=== PATIENT | female | born 1960 | race Asian ===

== ENCOUNTER 2023-02-16 08:15 | Day surgery (SDC) | payer MEDICAID ==
[~2023-02-16] VITALS: Ht 165.1 cm; Wt 49.9 kg
[2023-02-16] MEDS ORDERED: MIDAZOLAM HCL 5 MG/5 ML VIAL ONE (09:43)
[2023-02-16] MEDS ORDERED: fentaNYL CITRATE/PF 100 MCG/2 ML AMP ONE (09:43)
[2023-02-16 11:54] VITALS: O2SAT 96
[2023-02-16 12:52] VITALS: BP_SYST 117; PULSE 71; RESP 16
== END 2023-02-16 11:50 | disposition home or self-care (01) ==
LOC: SDS 08:15 → SMU 08:17 → SDS 11:50
PROVIDERS: ATTEND Internal Medicine
DX: Z12.11 Encounter for screening for malignant neoplasm of colon (principal); K63.5 Polyp of colon; K29.50 Unspecified chronic gastritis without bleeding; K21.9 Gastro-esophageal reflux disease without esophagitis; R10.13 Epigastric pain; E78.00 Pure hypercholesterolemia, unspecified; Z88.0 Allergy status to penicillin; Z79.899 Other long term (current) drug therapy
CPT/HCPCS: 45380; 43239; 99152; 87081; 36415; 88305; 88312; 88313; 99153; G0378; J2250; J3010